=== PATIENT | male | born 1960 | race Caucasian/White ===

== ENCOUNTER 2018-08-20 13:30 | Outpatient (RCR) | payer OTHER, SELFPAY ==
--- NOTE | 2018-08-13 08:57 | HP.PTEVAL_ITS ---
Patient's Visit Information CHAYA HAMPTON is a 57 year old M referred to Physical Therapy by Vicente Falcon MD with a diagnosis of R shoulder OA. Date of Evaluation: 08/13/18 Physical Therapist: Hermes Rhoades PT, ATC - Visit Plan Frequency: 1x/Week Duration: 1 Week Plan: Issue and instruct pt on a HEP for R shoulder rotator cuff and scapular stab ex's - Subjective Findings: Pt reports he was remodeling his bathroom a few months ago and began to notice R shoulder pain. Pt reports the pain progressively worsened until he received a cortisone injection 2 weeks ago. Pt reports his pain is much better now. Pt is R hand dominant. Pt reports he is still having occasional sleep difficulty if he sleeps on his R shoulder. Pt reports he is able to exercise some now without pain where he was unable to a couple weeks ago. Pt reports he is mostly here today to get some exercises to help strengthen his R shoulder. Pt has had xrays which revealed some OA. R shoulder pain is 1/10 this date at rest. - Pain R shoulder Pain Intensity (Out of 10): 1 Pain Intensity Range: 1 - Objective Neuro: B UE sensation is WNL to light touch. B bicepital reflex= 2/3. Palpation: Pt has very minor pain along the supraspinatus muscle distribution. No obvious deformit present. ROM: L shoulder flex= 150, abd= 135, ER= 0, IR WNL ; R shoulder flex= 135, abd= 115, ER= 0, IR moderately limited. MMT: R shoulder IR and ER are 4-/5 and painful. Other B UE's are 5/5 throughout. Special tests: pos empty can and HK impingement test - Goals Goal 1:: I with HEP Goal Time Frame: 1 Week - Rehabilitation Potential Physical Therapy Diagnosis: Pt has R shoulder pain, weakness, and limited ROM secondary to degenerative changes in the R shoulder Rehabilitation Potential: Good - Anticipated Interventions Patient/Client Instruction: Educate patient on: Condition, Plan of Care For the Purpose of:: To improve self management Therapeutic Exercise to Include: Strength training, Active ROM, Scapular Strength/Stabilization For the Purpose of:: To decrease pain, To increase ROM, To improve muscle performance and motor function Cryotherapy (ice pack, ice massage): Yes For the Purpose of:: To decrease pain Thank you for the opportunity to evaluate your patient. For Medicare and Medicare HMO plans, please review the plan of care and approve it. It will need to be FAXED BACK to us at [phone] for Medicare purposes. For Medicare only, by signing this I certify the plan of care. Please let me know if there are questions or concerns regarding this plan of care. Physician Signature: Date:
--- NOTE | 2018-11-20 12:42 | HP.PT.NRP ---
HP - Discharge Summary (1) - Patient Information CHAYA HAMPTON was seen in my office for initial evaluation on 08/13/18. The following Plan of Care was established for this patient: Initial Frequency: 1x/Week Initial Duration: 1 Week - Anticipated Interventions Patient/Client Instruction: Educate patient on: Condition, Plan of Care For the Purpose of:: To improve self management Therapeutic Exercise to Include: Strength training, Active ROM, Scapular Strength/Stabilization For the Purpose of:: To decrease pain, To increase ROM, To improve muscle performance and motor function Cryotherapy (ice pack, ice massage): Yes For the Purpose of:: To decrease pain This patient was last seen in our office . Pertinent comments regarding their Physical therapy will appear below: Pt was treated for 2 PT visits for his R shoulder pain through the date of 08/20/18. Pt has not returned through todays date and is therefore discontinued at this time. At this point I will be discontinuing this patient from physical therapy. I would be happy to see this patient again in the future if found appropriate by the physician. Thank you! Hermes Rhoades, PT, ATC
== END 2018-08-20 19:00 | disposition home or self-care (01) ==
LOC: PT 13:30
PROVIDERS: Family Provider Family Medicine; PCP Family Medicine; Referring Provider Orthopaedic Surgery; Visit Provider Orthopaedic Surgery
DX: M19.011 Primary osteoarthritis, right shoulder (principal)
CPT/HCPCS: 97161; 97530